=== PATIENT | female | born 2000 | race Caucasian/White ===

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

== ENCOUNTER 2019-03-27 23:04 | Outpatient (CLI) | payer MEDICAID ==
[2018-11-16 21:24] VITALS: BMI 26.7
[2019-03-27] MEDS ORDERED: PRENAVITE1 TAB PO (23:20)
[2019-03-27] MEDS ORDERED: MELATONIN10 M1 (23:20)
[2019-03-27 23:54] LABS: APPEARANCE CLEAR (CLEAR); BILIRUBIN NEGATIVE (NEGATIVE); COLOR YELLOW (YELLOW); GLUCOSE NEGATIVE (NEGATIVE); KETONE NEGATIVE (NEGATIVE); NITRITE NEGATIVE (NEGATIVE); PROTEIN NEGATIVE (NEGATIVE); SPECIFIC GRAVITY 1.015 (1.005-1.020); UROBILINOGEN NORMAL (NORMAL)
== END 2019-03-28 00:43 | disposition home or self-care (01) ==
LOC: D.LDO 23:04 → D.LD 23:35 → D.LDO 03-28 00:43
PROVIDERS: ATTEND Obstetrics & Gynecology
DX: O26.893 Other specified pregnancy related conditions, third trimester (principal); Z3A.37 37 weeks gestation of pregnancy

== ENCOUNTER → 2019-04-16 10:15 | Outpatient (CLI) | payer MEDICAID ==
[2018-11-16 21:24] VITALS: BMI 26.7
[~2019-04-16 10:15] MED LIST: MELATONIN10 M1; PRENAVITE1 TAB PO
[2019-04-22 06:27] VITALS: BMI 31.2
== END | disposition home or self-care (01) ==
LOC: D.LDO 10:15
PROVIDERS: ATTEND Obstetrics & Gynecology
DX: O26.899 Other specified pregnancy related conditions, unspecified trimester (principal); Z3A.00 Weeks of gestation of pregnancy not specified

== ENCOUNTER → 2019-04-21 17:43 | Outpatient (CLI) | payer MEDICAID ==
[2018-11-16 21:24] VITALS: BMI 26.7
[~2019-04-21 17:43] MED LIST changes: +HYDROCODON-ACE1 EAC7 PO; +MOTRIN600 MG PO
[2019-04-22 06:27] VITALS: BMI 31.2
== END | disposition home or self-care (01) ==
LOC: D.LDO 17:43
PROVIDERS: ATTEND Obstetrics & Gynecology
DX: O48.0 Post-term pregnancy (principal); Z3A.40 40 weeks gestation of pregnancy

== ENCOUNTER 2019-04-22 05:40 | Inpatient (IN) | payer MEDICAID ==
[~2019-04-22] VITALS: Ht 167.6 cm; Wt 87.5 kg
[~2019-04-22 05:40] MED LIST changes: -HYDROCODON-ACE1 EAC7 PO; -MOTRIN600 MG PO
[2019-04-22 06:27] VITALS: BP 116/77; Ht 167.6 cm; Wt 87.5 kg
[2019-04-22 07:48] LABS: HEMATOCRIT 31.5 % (36.0-48.0); HEMOGLOBIN 10.4 g/dL (12-16); MCH 27.2 pg (26.0-34.0); MCV 82.2 fL (80.0-100.0); MEAN PLATELET VOLUME 11.1 fL (7.4-10.4); RBC 3.83 10x6/uL (4.00-5.40); RDW 14.1 % (11.5-14.5); WBC 5.2 10x3/uL (4.8-10.8)
[2019-04-22 08:01] LABS: UDS - AMPHET NEGATIVE QUAL (NEGATIVE); UDS - BARB NEGATIVE QUAL (NEGATIVE); UDS - BENZO NEGATIVE QUAL (NEGATIVE); UDS - COCAINE NEGATIVE QUAL (NEGATIVE); UDS - OPIATE NEGATIVE QUAL (NEGATIVE); UDS - PCP NEGATIVE QUAL (NEGATIVE); UDS - THC NEGATIVE QUAL (NEGATIVE)
[2019-04-22 20:05] VITALS: BP 106/63
--- NOTE | 2019-04-22 23:00 | NUR ---
REPORT FROM STELLA HANSON RN AND AMNA LOWE RN
--- NOTE | 2019-04-22 23:45 | NUR ---
PT INFORMED THAT SHE WAS GOING TO BE TRANSFERRED, PT VERBALIZES UNDERSTANDING, PT UP TO BR WITH ASSISTANCE, GAIT STEADY, PT VOIDED 100 MLS OF LIGHTLY BLOOD TINGED URINE BY SELF WITH NO DIFFICULTY, PT ASSISTED WITH SARAH CARE, SARAH PAD AND PANTIES, PT TO WC, FOB TOOK ALL BELONGINGS TO ROOM 1219, PT TRANSFERRED TO ROOM 1219, TRANSFERS SELF TO BED, PT ORIENTED TO ROOM, BED IN LOW POSITION, SIDE RAILS X 2, CALL LIGHT IN REACH, FOB AT SIDE
[2019-04-23] VITALS (12 sets, daily range): BP systolic 96–119; BP diastolic 49–71
--- NOTE | 2019-04-23 01:00 | NUR ---
TOOK PT ICE PACK. EDUCATED ON HOW TO USE BULB SYRINGE ON BABY. DENIES ANY FURTHER NEEDS AT THIS TIME. BED LOW, CALL LIGHT IN REACH, RAILS UP X 2.
--- NOTE | 2019-04-23 01:30 | NUR ---
PT CRUDE OIL DRIVER LIGHT, PT UP IN BR, PT VOIDED 200 MLS OF LIGHTLY BLOOD TINGED URINE, ASSISTED PT WITH SARAH CARE, ICE PACK, AND SARAH PANTIES, PT BACK TO BED, INFANT TO ROOM VIA OPEN CRIB CART PER NSY NURSE, PT DENIES FURTHER NEEDS, FOB AT BEDSIDE
--- NOTE | 2019-04-23 02:22 | NUR ---
PT AWAKE, HOLDING INFANT, DENIES NEEDS OR PAIN AT THIS TIME, FOB ASLEEP IN RECLINER
--- NOTE | 2019-04-23 04:00 | NUR ---
CARE TURNED OVER TO RONI BARKLEY RN
--- NOTE | 2019-04-23 04:20 | NUR ---
PT MOTOR OVERHAULER LIGHT, ASSISTED TO THE BATHROOM AND GAVE NEW PAD AND PANTIES AND REPLACED BED PAD.REPORTS PAIN 5/10, ADMINISTERED NORCO PER DRS ORDERS. DENIES ANY FURTHER NEEDS AT THIS TIME.
[2019-04-23 07:07] LABS: BASOPHILS 0 % (0-2); EOSINOPHILS 0.5 % (0-7); IMMATURE GRANULOCYTES 0.3 % (0-5); LYMPHOCYTES 12.3 % (15-50); MCH 27.1 pg (26.0-34.0); MCHC 32.9 g/dL (31.0-37.0); MCV 82.5 fL (80.0-100.0); MEAN PLATELET VOLUME 10.2 fL (7.4-10.4); MONOCYTES 10.2 % (2-11); NEUTROPHILS 76.7 % (40-80); RDW 14.1 % (11.5-14.5)
[2019-04-23 07:14] LABS: RAPID PLASMA REAGIN Non Reactive (Non Reactive)
[2019-04-23 07:20] LABS: HEMATOCRIT 23.1 % (36.0-48.0); HEMOGLOBIN 7.6 g/dL (12-16); PLATELET COUNT 108 10x3/uL (130-400); WBC 7.7 10x3/uL (4.8-10.8)
--- NOTE | 2019-04-23 07:43 | NUR ---
SITTING UP IN BED EATING BREAKFAST. FUNDUS UU/ SMALL LOCHIA NOTED ON PAD. FAMILY AT BEDSIDE.
--- NOTE | 2019-04-23 08:15 | NUR ---
REQUESTING PAIN MEDICATION- RATES PAIN A 8 ON SCALE OF 0-10. CO PAIN LOWER BACK AND AT PERINEUM. MED GIVEN.
--- NOTE | 2019-04-23 08:23 | NUR ---
NOITIFIED DR DUMONT OF H&H - ORDERS TO REPEAT AND CALL HIM RESULTS.
--- NOTE | 2019-04-23 08:29 | NUR ---
LAB HERE FOR BLOOD DRAW.
--- NOTE | 2019-04-23 08:30 | NUR ---
ATTEMPT TO FLUSH SALINE LOCK WITH 10CC NS- FLUSHES EASILY BUT PT STATES THAT IT HURTS. INFORMED THAT IF NEED IV ACCESS THAT WE WILL RESTART IV. PT STATES OK.
[2019-04-23 08:39] LABS: HEMATOCRIT 25.7 % (36.0-48.0); HEMOGLOBIN 8.4 g/dL (12-16)
--- NOTE | 2019-04-23 08:56 | NUR ---
RESULTS OF REPEAT H&H DONE. 8.[address] DUMONT.
--- NOTE | 2019-04-23 09:05 | NUR ---
DR DUMONT RETURNS CALL- REPORT OF REPEAT H&H- NO NEW ORDERS- WILL CONT TO MONITOR VS.
--- NOTE | 2019-04-23 09:16 | NUR ---
PT STANDING AT BEDSIDE TENDING TO - TOLERATES WELL. EXPLAINED REPEAT BLOOD COUNT AND THAT DR DUMONT PLANS TO CONT TO MONITOR. PT STATES UNDERSTANDING.
--- NOTE | 2019-04-23 09:37 | NUR ---
UP AND ABOUT IN ROOM -STATES SHE IS READY TO SHOWER. REEVALUATED PAIN- STATES THAT ABOUT A 6-7.
--- NOTE | 2019-04-23 10:14 | NUR ---
SHOWER DONE- TOLERATED WELL. LINENS CHANGED. REQUESTS ICE CAP FOR PERINEUM.
--- NOTE | 2019-04-23 11:18 | NUR ---
CO PAIN PERINEAL AREA- RECTUM- REQUESTING PAIN MED/ MED GIVEN.
--- NOTE | 2019-04-23 13:32 | NUR ---
PT REQUESTING IV OUT- SINCE IV STUNG WHEN FLUSHED THIS AM. IV REMOVED- CATH TIP INTACT. EXPLAINED THAT IF NEEDS TRANSFUSION WILL RESTART.
--- NOTE | 2019-04-23 13:45 | NUR ---
DR DUMONT HERE TO SEE PT- NEW ORDER RECEIVED.
--- NOTE | 2019-04-23 14:03 | NUR ---
IV STARTED LT WRIST USING 18G CATH WITHOUT DIFFICULTY. NS HUNG AND INFUSING AT 30CC/HR PER PUMP UNTIL PRBC ARE READY FROM LAB.
--- NOTE | 2019-04-23 14:40 | NUR ---
FIRST UNIT PRBC'S HUNG AND INFUSING AT SLOW INITIAL RATE PER PUMP. UNIT O+- DONOR # [id number]. BLOOD TUBING USED- 250CC NS BAG.
--- NOTE | 2019-04-23 14:47 | NUR ---
TALKING WITH VISITORS. NO S/S OF TRANSFUSION REACTION.
--- NOTE | 2019-04-23 15:05 | NUR ---
UNIT PRBC INCREASED TO 170CC/HR PER PUMP.
--- NOTE | 2019-04-23 15:30 | NUR ---
NO S/S OF TRANSFUSION REACTION NOTED.
--- NOTE | 2019-04-23 16:30 | NUR ---
FIRST UNIT PRBC FINISHED INFUSING- LINE BEING FLUSHED WITH NS. NO S/S OF TRANSFUSION REACTION.
--- NOTE | 2019-04-23 17:01 | NUR ---
NEW BAG 250CC NS AND NEW BLOOD TUBING HUNG AND NS INFUSING AT 30CC/HR.
--- NOTE | 2019-04-23 17:28 | NUR ---
2ND UNIT PRBC'S DONOR # [id number] O+. INFUSING AT SLOW RATE FOR FIRST 50CC.
--- NOTE | 2019-04-23 18:33 | NUR ---
SITTING UP IN BED -LOOKING AT BABY BOOK. AT BEDSIDE. NO S/S OF TRANSFUSION REACTION.
--- NOTE | 2019-04-23 18:43 | NUR ---
REQUESTING PAIN MEDICATION -CO PAIN PERINEAL AREA- RATES PAIN A 7 ON SCALE OF 0-10. MEDS GIVEN.
--- NOTE | 2019-04-23 19:25 | NUR ---
PM ROUNDS MADE, PT AT THIS TIME, 2ND UNIT OF PRBC INFUSING WITH NO DIFFICULTY, INFORMED PT THAT I WILL COME BACK SHORTLY TO DO ASSESSMENT, PT VERBALIZES UNDERSTANDING, DENIES NEEDS AT THIS TIME, FOB AT BEDSIDE
--- NOTE | 2019-04-23 20:00 | NUR ---
PT HOLDING INFANT AT THIS TIME, 2ND UNIT OF PRBC FINISHED INFUSING, NS RESTARTED TO FLUSH LINE, INFORMED PT THAT I WILL BE BACK SHORTLY TO DO ASSESSMENT, NIPPLE CREAM PROVIDED, DENIES FURTHER NEEDS
--- NOTE | 2019-04-23 21:00 | NUR ---
ASSESSMENT PER FLOW SHEET, VS OBTAINED, IV CONVERTED TO SALINE LOCK, FLUSHED WITH NO DIFFICULTY, FF, ML, U/2, LITE BLEEDING WITH NO CLOTS NOTED, PT REPORTS FLATUS, NO BM AND VOIDING WITH NO DIFFICULTY, DOING SARAH CARE INST., RATES PAIN 4/10, STATES "IT'S NOT TO BAD", DENIES NEEDS AT THIS TIME, FEMALE FAMILY MEMBER HOLDING AT THIS TIME, TRASH REMOVED
--- NOTE | 2019-04-23 22:30 | NUR ---
PT PEST CONTROL PILOT LIGHT, CRYING, STATES "I DON'T KNOW WHY SHE KEEPS CRYING", ANTWAN LEMUS RN, [facility] NURSE COMING OUT OF A ROOM AT THIS TIME, I INFORM [facility] NURSE OF PT'S STATEMENT, [facility] NURSE TO ROOM
--- NOTE | 2019-04-23 23:07 | NUR ---
PT MANUFACTURING ASSEMBLER LIGHT, REQUESTED AND ADM PAIN MED PER MD ORDERS, SEE EMAR, PT DENIES FURTHER NEEDS, FAMILY MEMBER ASLEEP AT BEDSIDE
--- NOTE | 2019-04-24 00:23 | NUR ---
PT HOLDING INFANT, OFFERED MOTRIN, PT DENIES NEED FOR IT, REPORTS PAIN 0/10 AT THIS TIME
--- NOTE | 2019-04-24 02:13 | NUR ---
PT AWAKE, HOLDING INFANT, DENIES NEEDS OR PAIN AT THIS TIME, FAMILY MEMBER ASLEEP IN RECLINER
--- NOTE | 2019-04-24 04:41 | NUR ---
PT AWAKE, HOLDING INFANT, C/O PAIN AND CRAMPING, ADM PAIN MED AND MOTRIN PER MD ORDERS, SEE EMAR, WITH FRESH H20, PT DENIES FURTHER NEEDS, FAMILY MEMBER ASLEEP IN RECLINER
[2019-04-24 06:28] LABS: HEMOGLOBIN 9.2 g/dL (12-16); MCH 27.5 pg (26.0-34.0); MCHC 32.9 g/dL (31.0-37.0); MCV 83.6 fL (80.0-100.0); MEAN PLATELET VOLUME 10.2 fL (7.4-10.4); RBC 3.35 10x6/uL (4.00-5.40); RDW 14.5 % (11.5-14.5); WBC 7.5 10x3/uL (4.8-10.8)
--- NOTE | 2019-04-24 06:32 | NUR ---
PT AWAKE, INFANT IN OPEN CRIB CART, PT DENIES NEEDS OR PAIN, FAMILY MEMBER ASLEEP IN RECLINER
--- NOTE | 2019-04-24 07:00 | NUR ---
SHIFT REPORT TO AGATHA COOPER RN
[2019-04-24 08:10] VITALS: BP 108/64
--- NOTE | 2019-04-24 08:10 | NUR ---
ASSESSMENT DONE. AWAKE AND ALERT- VERBAL RESPONSES APPRO TO QUESTIONS. UP AND ABOUT IN ROOM DESIRED. DENIES NEEDS. VISITOR AT BEDSIDE.
--- NOTE | 2019-04-24 08:25 | NUR ---
FUNDUS UU/FIRM. SMALL LOCHIA NOTED ON PAD.
--- NOTE | 2019-04-24 08:54 | NUR ---
Se Quiros 04/24/19 S: Patient states is going better. She was given a nipple shield to use and it has help with her nipples feeling sore. latches better and she continues to feed infant on demand. Patient applied nipple shield over her left nipple and states she will just latch after she puts it on. States her nipples don't feel as sore with the nipple shield. With baby latching directly on the breast it felt like baby was just rubbing her nipple with infant mouth. Denies questions about . Asked if CLC can help make her a WIC appointment. Verbally agrees to address and questions or concerns to nursery nurse. Verbally agrees to ask nursing staff to review infant latch at next feeding . O: Patient standing up next to bed talking with family member in room. in nursery. Asked patient how did go last night and this morning? Praised for and encouraged to continue to feed on demand when showing feeding cues. This will help with establishing your milk supply. Asked patient to show me how she is applying the nipple shield for usages. Showed how to correctly apply nipple shield for usages. Both of patient breast have a small scab on the tip of the corner of both nipples. Possible reason for sore nipples is due to being latched incorrectly. Encouraged patient to have a nurse review latch at next feeding. We will like to make sure infant you are aware of how a correctly latch looks like. Explained to patient different positions to help with infant latch. CLC made client a WIC appointment while in her room. Asked if any questions or concerns? A: Patient using nipple shield due to sore nipple with latching . P: Patient will contact nursing staff for next feeding to get latch asset. AURORA Bernabe
--- NOTE | 2019-04-24 09:17 | NUR ---
Se Quiros 04/24/19 CLC informed patient of reasons for using a nipple shield. Patient doesn't have flat or inverted nipples except for nipple pain when latching infant. Encouraged patient to work on correcting latch which will help prevent sore nipples. Nipple lucio should in general be considered a short-term solution and should be used under the guidance of a executive talent acquisition consultant. When using a shield you need to carefully assess your baby for adequate intake. Count her wet diapers every day and make sure that she is having at least 6 really wet ones each 24 hour period. You also will want to make sure that she stools at least three times daily if she is less than 5-6 weeks of age. After 5-6 weeks, his stools may come less often, but should still be loose and profuse even if more time has passed. Baby will also need to be weighed frequently at least every 2 weeks (make sure you use the same scale) until it is clear that she is gaining well. Please follow up with hospital nursing staff on tips to help wean infant from nipple shield. AUR[facility]A did not provide patient with nipple shield and recommends she follows up with nursery staff on any questions or concerns about nipple shield usages and weaning from shield. Yimi Del Rosario, AURORA
--- NOTE | 2019-04-24 09:37 | NUR ---
Se Quiros 04/24/19 CLC informed patient of reasons for using a nipple shield. Patient doesn't have flat or inverted nipples except for nipple pain when latching infant. Encouraged patient to work on correcting latch which will help prevent sore nipples. Nipple lucio should in general be considered a short-term solution and should be used under the guidance of a fashion consultant. When using a shield you need to carefully assess your baby for adequate intake. Count her wet diapers every day and make sure that she is having at least 6-8 really wet ones each 24 hour period. You also will want to make sure that she stools at least three times or more daily if she is less than 5-6 weeks of age. After 5-6 weeks, his stools may come less often, but should still be loose and profuse even if more time has passed. Baby will also need to be weighed frequently at least every 2 weeks (make sure you use the same scale) until it is clear that she is gaining well. Please follow up with hospital nursing staff on tips to help wean infant from nipple shield. A[facility] did not provide patient with nipple shield and recommends she follows up with nursery staff on any questions or concerns about nipple shield usages and weaning from shield. AURORA Bernabe
--- NOTE | 2019-04-24 09:38 | NUR ---
RINGS CALL LIGHT- REQUESTING PAIN MEDICATION. CO PAIN PERINEAL AREA AND RATES PAIN A 7 ON SCALE OF 0-10.
--- NOTE | 2019-04-24 13:00 | NUR ---
DR DUMONT HERE TO SEE PT.
--- NOTE | 2019-04-24 13:05 | NUR ---
DR DUMONT TELLS PT THAT HE WANTS HER TO CALL OFFICE ON SATURDAY TO MAKE AN APPOINTMENT TO BE SEEN NEXT WEEK TO CHECK PERINEUM. DISCHARGE ORDERS RECEIVED.
--- NOTE | 2019-04-24 13:05 | NUR ---
AMBULATES TO DESK- TALKS WITH DR DUMONT AT [facility].
--- NOTE | 2019-04-24 13:22 | NUR ---
RINGS BATHROOM CALLLIGHT- CO PAIN AT STITCHES. REQUESTING PAIN MEDICATION- RATES PAIN AN 8 ON SCALE OF 0-10.
[2019-04-24] MEDS ORDERED: HYDROCODON-ACE1 EAC7 PO (14:46)
[2019-04-24] MEDS ORDERED: MOTRIN600 MG PO (14:48)
--- NOTE | 2019-04-24 15:01 | NUR ---
discharge inst verbal and written given. pt instructed to call md office on saturday to obtain an appointment from cornelia to be seen during that week. prescription with meds x 2 -norco and motrin given to pt along with pt med rec and drug data info sheets. pfw discharge inst given. [facility] emergency page given. pt health summary given. see also pt inst sign page for other handouts.
--- NOTE | 2019-04-24 15:35 | NUR ---
nursery in room finishing discharge of infant.
--- NOTE | 2019-04-24 15:56 | NUR ---
pt states she is ready to go home at this time. sign other at side. pt discharged home with . to auto via w/c.
== END 2019-04-24 15:57 | disposition home or self-care (01) | DRG 807 ==
LOC: D.WS 05:40 → D.LD 05:40 → D.WS 23:45
PROVIDERS: ADMIT Obstetrics & Gynecology; ATTEND Obstetrics & Gynecology
PROC: 10E0XZZ Delivery of Products of Conception, External Approach (ICD-10-PCS; principal; 2019-04-22)
PROC: 0KQM0ZZ Repair Perineum Muscle, Open Approach (ICD-10-PCS; 2019-04-22)
DX: O70.1 Second degree perineal laceration during delivery (principal); Z37.0 Single live birth; Z3A.41 41 weeks gestation of pregnancy